=== PATIENT | male | born 1950 | race Native Hawaiian/Other Pacific Islander ===

== ENCOUNTER 2016-08-12 10:33 | Inpatient (IN) | payer OTHER ==
[~2016-08-12] VITALS: Ht 180.3 cm; Wt 110.9 kg
[~2016-08-12 10:33] MED LIST: ALBUTEROL0.083 % IN; CARV6.25 PO; CLARITIN10 MG OR; CLARITIN10 MG PO; EQ ASPIRIN325 M1 OR; EQ ASPIRIN325 M1 PO; GEMF600T17 PO; HYDR-2748 PO; JANUMET1 TA1 OR; JANUMET1 TA1 PO; LORTAB1 TA1 PO; METF100038 PO; PLAVIX75 MG PO; RANI150T78 PO; SIMV40TA57 PO; TRICOR145 M1 PO; TRICOR145 MG PO; TRILIPIX135 MG OR; Z-PAK PO
[2016-08-12 10:56] VITALS: BP 153/89; TEMP 97.9
[2016-08-12 11:26] LABS: PLATELET COUNT 153 K/uL (142-355)
[2016-08-12 11:50] LABS: POTASSIUM 3.8 mmol/L (3.6-5.2)
[2016-08-13] VITALS (18 sets, daily range): BP systolic 113–170; BP diastolic 70–111; TEMP 97.7–99; Ht 180.3 cm; Wt 110.9 kg
[2016-08-13] MEDS ORDERED: GLIP10TA55 PO ×2 (18:11)
[2016-08-13] MEDS ORDERED: FURO20TA67 PO ×2 (18:12)
[2016-08-13] MEDS ORDERED: CHLORTHALID25 MG PO ×2 (18:12)
[2016-08-13] MEDS ORDERED: TRADJENTA5 M1 PO ×2 (18:13)
[2016-08-13] MEDS ORDERED: XARELTO20 MG PO ×2 (18:14)
[2016-08-13] MEDS ORDERED: OMEPRAZOLE20 M2 PO ×2 (18:16)
[2016-08-13] MEDS ORDERED: AMLO2.5T PO ×2 (18:17)
[2016-08-13] MEDS ORDERED: FUROSEMIDE40 MG PO ×2 (18:20)
[2016-08-13] MEDS ORDERED: KLOR-CON 1010 MEQ PO ×2 (18:21)
[2016-08-13] MEDS ORDERED: GABA300C2 PO ×2 (18:22)
[2016-08-13] MEDS ORDERED: DIGOX125 MCG PO ×2 (18:22)
[2016-08-13] MEDS ORDERED: AMOX875T8 PO ×2 (18:24)
[2016-08-13] MEDS ORDERED: CHERATUSSIN PO ×2 (18:25)
[2016-08-14] VITALS (24 sets, daily range): BP systolic 113–187; BP diastolic 51–99; TEMP 97–98.7
[2016-08-14 05:31] LABS: PLATELET COUNT 108 K/uL (142-355)
[2016-08-14 05:58] LABS: POTASSIUM 4.1 mmol/L (3.6-5.2); SODIUM 129 mmol/L (136-145)
[2016-08-14] MEDS ORDERED: LEVEMIR FLEXPEN SC ×2 (15:45)
[2016-08-15] VITALS (14 sets, daily range): BP systolic 127–171; BP diastolic 63–96; TEMP 97.6–98
[2016-08-15 06:31] LABS: PLATELET COUNT 134 K/uL (142-355)
[2016-08-15 07:10] LABS: POTASSIUM 3.8 mmol/L (3.6-5.2)
[2016-08-16 00:24] VITALS: BP 168/66; TEMP 98.2
[2016-08-16 04:41] LABS: PLATELET COUNT 135 K/uL (142-355)
[2016-08-16 04:45] LABS: POTASSIUM 4.4 mmol/L (3.6-5.2)
[2016-08-16 05:48] VITALS: BP 163/81; TEMP 98.6
[2016-08-16 08:24] VITALS: BP 155/75; TEMP 97.8
[2016-08-16 13:53] VITALS: BP 143/71; TEMP 98
[2016-08-16 16:00] VITALS: BP 141/60; TEMP 97.4
[2016-08-16 20:00] VITALS: BP 138/74; TEMP 97.8
[2016-08-17 04:00] VITALS: BP 195/83; TEMP 98.3
[2016-08-17 05:05] LABS: PLATELET COUNT 109 K/uL (142-355)
[2016-08-17 08:00] VITALS: BP 163/71; TEMP 98.2
[2016-08-17 08:36] LABS: POTASSIUM 4.1 mmol/L (3.6-5.2)
[2016-08-17 12:00] VITALS: BP 162/68; TEMP 98.6
[2016-08-17 16:00] VITALS: BP 158/62; TEMP 98.6
[2016-08-17 20:00] VITALS: BP 157/84; TEMP 97.5
[2016-08-18] VITALS: BP 154/74; TEMP 97.5
[2016-08-18 04:00] VITALS: BP 176/88; TEMP 97.3
[2016-08-18 06:07] LABS: PLATELET COUNT 111 K/uL (142-355)
[2016-08-18 07:59] VITALS: BP 145/95; TEMP 98.1
[2016-08-18 12:25] VITALS: BP 143/79; TEMP 98.2
== END 2016-08-18 14:30 | disposition home or self-care (01) | DRG 191 ==
LOC: ED 10:33 → MED/SURG 22:09 → ICU 08-13 17:46 → MED/SURG 08-13 17:46 → ICU 08-15 17:00 → MED/SURG 08-15 17:00
PROVIDERS: Emergency Medicine
DX: J44.0 Chronic obstructive pulmonary disease with (acute) lower respiratory infection (principal); E87.3 Alkalosis; E87.1 Hypo-osmolality and hyponatremia; J20.9 Acute bronchitis, unspecified; R06.09 Other forms of dyspnea; I48.91 Unspecified atrial fibrillation; E11.9 Type 2 diabetes mellitus without complications; R53.1 Weakness; N18.3 Chronic kidney disease, stage 3 (moderate); Z72.0 Tobacco use; I48.2 Chronic atrial fibrillation; J32.8 Other chronic sinusitis; Z86.73 Personal history of transient ischemic attack (TIA), and cerebral infarction without residual deficits; I25.10 Atherosclerotic heart disease of native coronary artery without angina pectoris; I25.2 Old myocardial infarction
CPT/HCPCS: 36415; 36600; 80048; 80053; 80061; 80162; 81000; 82550; 82805; 82947; 82948; 82962; 83036; 83735; 83880; 84484; 85027; 87070; 87077; 87185; 87186; 87490; 87590; 93005; 94640; 94664; 94760; 96360; 96365; 96366; 96367; 96372; 99220; 99283; 99284; G0378; J1160; J1450; J1644; J1650; J1940; J1956; J2060; J2920; J3490; Q9963

== ENCOUNTER 2016-08-21 12:02 | Emergency (ER) | payer OTHER ==
[~2016-08-21] VITALS: Ht 180.3 cm; Wt 108.9 kg
[~2016-08-21 12:02] MED LIST changes: +AMLO2.5T PO; +AMOX875T8 PO; +CHERATUSSIN PO; +CHLORTHALID25 MG PO; +DIGOX125 MCG PO; +FURO20TA67 PO; +FUROSEMIDE40 MG PO; +GABA300C2 PO; +GLIP10TA55 PO; +KLOR-CON 1010 MEQ PO; +LEVEMIR FLEXPEN SC; +OMEPRAZOLE20 M2 PO; +TRADJENTA5 M1 PO; +XARELTO20 MG PO
[2016-08-21 12:24] VITALS: BP 149/85; TEMP 97.5
[2016-08-21 14:55] LABS: PLATELET COUNT 152 K/uL (142-355)
[2016-08-21 14:58] LABS: POTASSIUM 4.8 mmol/L (3.6-5.2); SODIUM 129 mmol/L (136-145)
== END 2016-08-21 16:45 | disposition home or self-care (01) ==
LOC: ED 12:02
PROVIDERS: Emergency Medicine
DX: J44.1 Chronic obstructive pulmonary disease with (acute) exacerbation (principal); J42 Unspecified chronic bronchitis; E87.1 Hypo-osmolality and hyponatremia; R06.02 Shortness of breath; I48.91 Unspecified atrial fibrillation
CPT/HCPCS: 36415; 80053; 80162; 82550; 83880; 84484; 85027; 93005; 96372; 99283; J1815; J2930

== ENCOUNTER 2016-10-02 11:39 | Outpatient (CLI) | payer OTHER ==
[2016-10-02 12:06] LABS: PLATELET COUNT 207 K/uL (142-355)
== END 2016-10-02 12:39 | disposition home or self-care (01) ==
LOC: LAB 11:39
PROVIDERS: Family Medicine
DX: E11.9 Type 2 diabetes mellitus without complications (principal); N18.3 Chronic kidney disease, stage 3 (moderate); M79.671 Pain in right foot
CPT/HCPCS: 80053; 83036; 84550; 85027

== ENCOUNTER 2016-10-03 10:00 | Outpatient (CLI) | payer OTHER | END 2016-10-03 11:00 | disposition home or self-care (01) | LOC: RAD 10:00 | DX: M79.671 Pain in right foot (principal) ==

== ENCOUNTER 2017-03-20 13:09 | Outpatient (CLI) | payer OTHER ==
[2017-03-20 13:54] LABS: PLATELET COUNT 121 K/uL (142-355)
[2017-03-20 14:34] LABS: POTASSIUM 4.4 mmol/L (3.6-5.2)
== END 2017-03-20 14:10 | disposition home or self-care (01) ==
LOC: LAB 13:09
PROVIDERS: Family Medicine
DX: Z00.00 Encounter for general adult medical examination without abnormal findings (principal); E11.9 Type 2 diabetes mellitus without complications; I12.9 Hypertensive chronic kidney disease with stage 1 through stage 4 chronic kidney disease, or unspecified chronic kidney disease; N18.3 Chronic kidney disease, stage 3 (moderate); I48.91 Unspecified atrial fibrillation; Z12.5 Encounter for screening for malignant neoplasm of prostate
CPT/HCPCS: 80053; 80061; 81000; 82306; 83036; 83735; 84153; 84439; 84443; 84550; 85027

== ENCOUNTER 2017-03-23 23:41 | Emergency (ER) | payer OTHER ==
[~2017-03-23] VITALS: Ht 180.3 cm; Wt 104.8 kg
[2017-03-24] MEDS ORDERED: XARELTO15 MG PO (00:20)
[2017-03-24] MEDS ORDERED: ALLO100T22 PO (00:23)
[2017-03-24] MEDS ORDERED: TRADJENTA5 M1 PO (00:24)
[2017-03-24 00:51] VITALS: BP 156/61; TEMP 98.8
== END 2017-03-24 00:53 | disposition home or self-care (01) ==
LOC: ED 23:41
DX: K64.4 Residual hemorrhoidal skin tags (principal); S31.831A Laceration without foreign body of anus, initial encounter; K62.89 Other specified diseases of anus and rectum
CPT/HCPCS: 99282

== ENCOUNTER 2017-07-16 09:41 | Outpatient (CLI) | payer OTHER ==
[~2017-07-16 09:41] MED LIST changes: +ALLO100T22 PO; +XARELTO15 MG PO
[2017-07-16 10:41] LABS: POTASSIUM 4.3 mmol/L (3.6-5.2)
== END 2017-07-16 21:50 | disposition home or self-care (01) ==
LOC: LABW 09:41
PROVIDERS: Family Medicine
DX: E11.3 Type 2 diabetes mellitus with ophthalmic complications (principal); R60.0 Localized edema; Z79.899 Other long term (current) drug therapy
CPT/HCPCS: 36415; 80053; 80162; 83036; 84154; 84436; 84443; 84550

== ENCOUNTER → 2017-07-23 15:53 | Outpatient (CLI) | payer OTHER | END | disposition home or self-care (01) | LOC: AMB 15:53 | DX: Z04.1 Encounter for examination and observation following transport accident (principal) ==

== ENCOUNTER 2017-08-21 08:32 | Outpatient (CLI) | payer OTHER | END 2017-08-21 19:46 | disposition home or self-care (01) | LOC: NM 08:32 | DX: I25.10 Atherosclerotic heart disease of native coronary artery without angina pectoris (principal) | CPT/HCPCS: A9500; J2785 ==

== ENCOUNTER 2017-09-21 09:39 | Emergency (ER) | payer OTHER ==
[~2017-09-21] VITALS: Ht 180.3 cm; Wt 104.3 kg
[2017-09-21 11:05] LABS: PLATELET COUNT 154 K/uL (142-355)
[2017-09-21 11:13] LABS: POTASSIUM 4.5 mmol/L (3.6-5.2)
[2017-09-21 14:40] VITALS: BP 138/72; TEMP 98
== END 2017-09-21 14:40 | disposition home or self-care (01) ==
LOC: ED 09:39
DX: K40.90 Unilateral inguinal hernia, without obstruction or gangrene, not specified as recurrent (principal); K80.10 Calculus of gallbladder with chronic cholecystitis without obstruction; R10.84 Generalized abdominal pain; I48.91 Unspecified atrial fibrillation
CPT/HCPCS: 36415; 74022; 80053; 80162; 81000; 82150; 83690; 84484; 85027; 93005; 99284

== ENCOUNTER 2017-09-24 10:20 | Outpatient (CLI) | payer OTHER | END 2017-09-24 21:47 | disposition home or self-care (01) | LOC: US 10:20 | DX: R10.11 Right upper quadrant pain (principal) ==

== ENCOUNTER 2017-09-28 20:29 | Inpatient (IN) | payer OTHER ==
[~2017-09-28] VITALS: Ht 180.3 cm; Wt 98.0 kg
[2017-09-28 20:50] VITALS: BP 145/62; TEMP 98.2
[2017-09-28 22:05] LABS: PLATELET COUNT 204 K/uL (142-355); POTASSIUM 4.1 mmol/L (3.6-5.2); SODIUM 129 mmol/L (136-145)
[2017-09-29] VITALS (17 sets, daily range): BP systolic 114–163; BP diastolic 48–92; TEMP 97.6–98.6; Ht 180.3 cm; Wt 98.0 kg
--- NOTE | 2017-09-29 00:40 | NUR ---
PATIENT RECEIVED VIA WC FROM ER. ALERT AND ORIENTED X 3. PATIENT GIVEN EDUCATION REGARDING CALL LIGHT AND BED CONTROLS. INSTRUCTED TO KEEP BED IN LOW POSITION. 20G SALINE LOCK TO RFA INTACT AND PATENT. REFER TO ASSESSMENT 1&2 FOR FURTHER DETAILS.
[2017-09-29 04:33] LABS: PLATELET COUNT 191 K/uL (142-355)
[2017-09-29 04:56] LABS: POTASSIUM 4.3 mmol/L (3.6-5.2)
--- NOTE | 2017-09-29 08:15 | NUR ---
PT SITTING UP ON SIDE OF THE BED. BREATH SOUNDS CLEAR UPON ASCULATION. HEART MURMUR NOTED. RESP AT BEDSIDE. WILL CONTNUE TO MONITOR. NAD NOTED.
--- NOTE | 2017-09-29 10:57 | NUR ---
PT SITTING UP ON THE SIDE OF THE BED. NAD NOTED. WILL CONTINUE TO MONITOR.
--- NOTE | 2017-09-29 11:27 | NUR ---
PT MOVED TO PCU VIA W/C. REPORT GIVEN TO ITZEL OSORIO RN. PT SITTING UP IIN BED. HEART MONITOR ON. NAD NOTED.
--- NOTE | 2017-09-29 13:15 | NUR ---
PATIENT REQUEST ICE AND WATER. SMALL BOTTLE GIVEN AND PLACED AT BEDSIDE.
--- NOTE | 2017-09-29 15:00 | NUR ---
PATIENT AMBULATED WELL TO RESTROOM. REPORTS HAVING A BOWEL MOVEMENT AT THIS TIME.
--- NOTE | 2017-09-29 15:30 | NUR ---
100% OF SUPPER TRAY EATEN.VOICES NO COMPLAINTS OR CONCERNS AT THIS TIME.
--- NOTE | 2017-09-29 18:01 | NUR ---
GLUCOSE 597. RESULTS CALLED TO DR. MAYO. NEW ORDERS RECIEVED FOR 10 UNITS NOVOLOG NOW.
--- NOTE | 2017-09-29 21:50 | NUR ---
GLUCOSE 789. DR. SAEED NOTIFIED. ORDERS RECEIVED TO FOLLOW SLIDING SCALE PREVIOUSLY ORDERED AND RECHECK IN TWO HOURS AND FOLLOW SLIDING SCALE AGAIN.
[2017-09-30] VITALS (25 sets, daily range): BP systolic 109–159; BP diastolic 49–90; TEMP 97.6–98.2
--- NOTE | 2017-09-30 01:13 | NUR ---
GLUCOSE 619 AT THIS TIME. SLIDING SCALE INSULING GIVEN AT THIS TIME. WILL RECHECK GLUCOSE IN 2 HOURS ORDERED
--- NOTE | 2017-09-30 02:21 | NUR ---
PT RESTING QUIETLY WITH EYES CLOSED. NAD NOTED. WILL CONTINUE TO MONITOR
--- NOTE | 2017-09-30 09:00 | NUR ---
DR MAYO AT PATIENTS BED SIDE
[2017-10-01] VITALS (20 sets, daily range): BP systolic 112–170; BP diastolic 49–99; TEMP 97.5–98.9
--- NOTE | 2017-10-01 06:51 | NUR ---
1950 CALLED TO PT BEDSIDE. PT SITTING UP IN BED. PT REQUESTED ICE WATER. PT WAS NOT IN DISTRESS. WILL CONTINUE TO MONITOR.
--- NOTE | 2017-10-01 06:56 | NUR ---
2230 PT IN BED RESTING. PT WAS NOT IN ANY DISTRESS. WHEN ASKED, PT DID NOT NEED ANYTHING AT THIS TIME. WILL CONTINUE TO MONITOR.
--- NOTE | 2017-10-01 06:57 | NUR ---
0000 PT IN BED RESTING WITH EYES CLOSED. NO S/S OF DISTRESS NOTED. WILL CONTINUE TO MONITOR.
--- NOTE | 2017-10-01 06:59 | NUR ---
0300 PT IN BED. PT REQUESTS A SNACK. I BROUGHT HIM A FEW SUGAR FREE COOKIES. NO S/S OF DISTRESS NOTED. WILL CONTINUE TO MONITOR.
[2017-10-01 08:59] LABS: PLATELET COUNT 210 K/uL (142-355)
--- NOTE | 2017-10-01 09:01 | NUR ---
CRITICAL GLUCOSE CALLED 479
--- NOTE | 2017-10-01 09:47 | NUR ---
CALLED DR. JAMIL TO REPORT CRITICAL GLUCOSE OF 479 INSTRUCTED BY [employer]SI PROTOCOL. 10 UNITS NOVOLOG ORDERED TO BE GIVEN. RECHECK OBTAINED PRIOR TO ADMINISTRATION OF INSULIN.
--- NOTE | 2017-10-01 10:00 | NUR ---
PATIENT AMBULATED WELL WITH ASSISTANCE TO RESTROOM.
--- NOTE | 2017-10-01 11:54 | NUR ---
BLOOD SUGAR 475. NOTIFIED MD. NEW ORDERS RECIEVED FOR 10 UNITS AND TO DISCONTINUE SOLUMEDROL.
--- NOTE | 2017-10-01 13:20 | NUR ---
EZ AT BEDSIDE TO EXAMINE PATIENT. REQUEST A BLOOD SUGAR NOW. IT HAS BEEN LESS THAN 1 HR SINCE COVERAGE WAS GIVEN AND BLOOD SUGAR IS 491. WILL RECHECK AGAIN 1 HOUR AND COVER AT THAT TIME. PATIENT BEING EDUCATED ON DIET AND ON HOW TO KEEP A BLOOD SUGAR DIARY BY .
--- NOTE | 2017-10-01 13:42 | NUR ---
PATIENT COMPLAINED OF LT TESTICAL AND LT GROIN PAIN. EXAM PERFORMED AND CT REVIEWED. BILATERAL INGUINAL HERNIAS DISCUSSED. PATIENT HAS BEEN SCHEDULED BY DR. DUMONT OFFICE FOR OUTPATIENT VISIT WITH DR. RODRÍGUEZ.
--- NOTE | 2017-10-01 14:15 | NUR ---
PATIENT TAKEN TO ROOM 1129 FOR SHOWER BY MERY LARSEN.
--- NOTE | 2017-10-01 14:31 | NUR ---
RETURNED FROM SHOWER.
--- NOTE | 2017-10-01 16:00 | NUR ---
PATIENT REQUEST A SNACK OF ESTRELLITA CRACKERS AND MILK. SNACK TAKEN TO BEDSIDE.
--- NOTE | 2017-10-01 17:00 | NUR ---
SITTING UPRIGHT IN BED TALKING ON CELL PHONE. DENIES AND PAIN OR NEEDS AT THIS TIME.
--- NOTE | 2017-10-01 18:30 | NUR ---
SITTING UPRIGHT IN BED WATCHING TV. 700 EMPTIED FROM URINAL.
[2017-10-02] VITALS (12 sets, daily range): BP systolic 117–157; BP diastolic 64–95; TEMP 97.8–98.2
[2017-10-02 11:18] LABS: PARTIAL THROMBOPLASTIN TIME 32.9 SECONDS (24.5-33.6)
--- NOTE | 2017-10-02 17:00 | NUR ---
REPORT GIVEN TO RONDA GEIGER RN ON MED SURG FLOOR.
--- NOTE | 2017-10-02 17:15 | NUR ---
PT TRANSFERRED TO MED SURG ROOM 1115 VIA WC. PT TOLERATED TRANSITION TO MED SURG FLOOR.
--- NOTE | 2017-10-02 23:51 | NUR ---
10/02/17 7570 RESPIRATORY PRESENT IN ROOM FOR BREATHING TREATMENT.CC
[2017-10-03] VITALS: BP 112/64; TEMP 98.2
[2017-10-03 04:00] VITALS: BP 126/65; TEMP 97.9
[2017-10-03 08:20] VITALS: BP 125/51; TEMP 98.6
--- NOTE | 2017-10-03 09:29 | NUR ---
IV D/C'D. TELE D/C'D. PT INSTRUCTED TO GO BY DR. DUMONT OFFICE TO GET INFO TO TAKE TO DR. RODRÍGUEZ' APT THIS SUNDAY. PT TO MAKE FU WITH DR. JAMIL AFTER APT WITH DR. RODRÍGUEZ. PRESCRIPTION GIVEN TO PT. PT HAS NO FUTHER QUESTIONS. PT AMBULATED OUT TO VEHICLE WITH NO PROBLEMS NOTED.
== END 2017-10-03 08:55 | disposition home or self-care (01) | DRG 191 ==
LOC: ED 20:29 → MED/SURG 09-29 00:18 → ICU 09-29 00:18 → MED/SURG 09-29 00:18 → ICU 09-29 11:15 → MED/SURG 10-02 17:19
PROVIDERS: Emergency Medicine; Internal Medicine; Specialist; ADMIT Family Medicine
DX: J44.0 Chronic obstructive pulmonary disease with (acute) lower respiratory infection (principal); J98.11 Atelectasis; J20.9 Acute bronchitis, unspecified; J44.1 Chronic obstructive pulmonary disease with (acute) exacerbation; I48.91 Unspecified atrial fibrillation; E11.22 Type 2 diabetes mellitus with diabetic chronic kidney disease; I12.9 Hypertensive chronic kidney disease with stage 1 through stage 4 chronic kidney disease, or unspecified chronic kidney disease; N18.3 Chronic kidney disease, stage 3 (moderate); D53.9 Nutritional anemia, unspecified; K80.80 Other cholelithiasis without obstruction; R10.9 Unspecified abdominal pain; E78.4 Other hyperlipidemia; I25.10 Atherosclerotic heart disease of native coronary artery without angina pectoris; I25.2 Old myocardial infarction; Z86.73 Personal history of transient ischemic attack (TIA), and cerebral infarction without residual deficits
CPT/HCPCS: 36415; 80048; 80053; 82947; 82948; 82962; 83735; 83880; 84100; 84484; 85027; 85610; 85730; 87070; 87205; 93005; 94640; 94664; 94760; 96372; 96374; 96375; 99284; J0696; J1650; J1815; J1940; J2920; J2930; J3490

== ENCOUNTER 2018-06-20 01:22 | Emergency (ER) | payer OTHER ==
[~2018-06-20] VITALS: Ht 180.3 cm; Wt 97.5 kg
[2018-06-20 01:33] VITALS: BP 152/72; TEMP 97.9
[2018-06-20 01:57] LABS: PLATELET COUNT 114 K/uL (142-355)
[2018-06-20 02:11] LABS: POTASSIUM 4.1 mmol/L (3.6-5.2)
== END 2018-06-20 03:38 | disposition home or self-care (01) ==
LOC: ED 01:22
PROVIDERS: Emergency Medicine
DX: E11.65 Type 2 diabetes mellitus with hyperglycemia (principal)
CPT/HCPCS: 36415; 80053; 81002; 82962; 85027; 96365; 96372; 96374; 99284; J1815

== ENCOUNTER 2018-07-06 11:41 | Outpatient (CLI) | payer OTHER | END 2018-07-06 23:01 | disposition home or self-care (01) | LOC: LABW 11:41 | DX: Z11.59 Encounter for screening for other viral diseases (principal) | CPT/HCPCS: 36415; 80074 ==

== ENCOUNTER 2019-02-27 10:06 | Outpatient (CLI) | payer OTHER | END 2019-02-27 22:35 | disposition home or self-care (01) | LOC: LABW 10:06 | DX: Z79.899 Other long term (current) drug therapy (principal); I50.9 Heart failure, unspecified | CPT/HCPCS: 36415; 80162 ==

== ENCOUNTER 2019-04-24 11:26 | Outpatient (CLI) | payer OTHER | END 2019-04-24 23:31 | disposition home or self-care (01) | LOC: RESP 11:26 | DX: Z00.00 Encounter for general adult medical examination without abnormal findings (principal); R00.1 Bradycardia, unspecified | CPT/HCPCS: 93005 ==

== ENCOUNTER 2019-06-14 14:36 | Outpatient (CLI) | payer OTHER | END 2019-06-14 20:09 | disposition home or self-care (01) | LOC: LABW 14:36 | DX: R19.7 Diarrhea, unspecified (principal); G89.4 Chronic pain syndrome; E11.65 Type 2 diabetes mellitus with hyperglycemia | CPT/HCPCS: 82272; 87015; 87045; 87324; 87328; 87329; 87449; 87899 ==

== ENCOUNTER 2019-11-08 14:37 | Emergency (ER) | payer OTHER ==
[~2019-11-08] VITALS: Ht 180.3 cm; Wt 97.5 kg
[2019-11-08 15:32] LABS: PLATELET COUNT 103 K/uL (142-355)
[2019-11-08 15:42] LABS: POTASSIUM 4.3 mmol/L (3.6-5.2)
[2019-11-08 21:17] VITALS: BP 150/77; TEMP 96.8
== END 2019-11-08 21:19 | disposition short-term general hospital (02) ==
LOC: ED 14:37
PROVIDERS: Family Medicine
DX: E87.1 Hypo-osmolality and hyponatremia (principal); J44.1 Chronic obstructive pulmonary disease with (acute) exacerbation; I48.91 Unspecified atrial fibrillation
CPT/HCPCS: 36415; 80053; 81000; 82150; 82550; 82553; 83605; 83690; 83880; 84484; 85027; 85379; 87040; 93005; 94664; 96360; 96365; 96375; 99285; J0696; J2060; J2270; J2405; J2930; Q9963

== ENCOUNTER 2020-06-22 11:28 | Outpatient (CLI) | payer OTHER | END 2020-06-22 19:15 | disposition home or self-care (01) | LOC: LAB 11:28 | PROVIDERS: ATTEND Family Medicine | DX: Z20.828 Contact with and (suspected) exposure to other viral communicable diseases (principal) | CPT/HCPCS: 87635; G2023; U0003 ==

== ENCOUNTER 2020-11-26 13:01 | Outpatient (CLI) | payer OTHER | END 2020-11-26 23:02 | disposition home or self-care (01) | LOC: RESP 13:01 | PROVIDERS: ATTEND Specialist | DX: E86.0 Dehydration (principal); I25.10 Atherosclerotic heart disease of native coronary artery without angina pectoris; I25.5 Ischemic cardiomyopathy; R00.1 Bradycardia, unspecified; I48.0 Paroxysmal atrial fibrillation; I35.2 Nonrheumatic aortic (valve) stenosis with insufficiency; E78.2 Mixed hyperlipidemia; I36.1 Nonrheumatic tricuspid (valve) insufficiency; I34.0 Nonrheumatic mitral (valve) insufficiency; I65.23 Occlusion and stenosis of bilateral carotid arteries; I10 Essential (primary) hypertension; R01.2 Other cardiac sounds; E66.3 Overweight ==

== ENCOUNTER 2021-01-20 22:28 | Emergency (ER) | payer OTHER ==
[~2021-01-20] VITALS: Ht 180.3 cm; Wt 95.3 kg
[2021-01-21 01:05] LABS: PLATELET COUNT 128 K/uL (142-355)
[2021-01-21 01:09] LABS: POTASSIUM 4.3 mmol/L (3.6-5.2)
[2021-01-21 02:34] VITALS: BP 152/72; TEMP 98.2
== END 2021-01-21 02:34 | disposition home or self-care (01) ==
LOC: ED 22:28
PROVIDERS: Hospitalist
DX: K59.09 Other constipation (principal)
CPT/HCPCS: 80053; 83690; 85027; 99283

== ENCOUNTER 2021-05-14 18:21 | Inpatient (IN) | payer OTHER ==
[~2021-05-14] VITALS: Ht 180.3 cm; Wt 97.7 kg
[2021-05-14 18:21] VITALS: BP 149/75; TEMP 98.8
[2021-05-14 19:00] VITALS: BP 128/70
[2021-05-14 19:05] LABS: PLATELET COUNT 156 K/uL (142-355)
[2021-05-14 19:11] LABS: POTASSIUM 3.8 mmol/L (3.6-5.2)
[2021-05-14 19:28] LABS: PARTIAL THROMBOPLASTIN TIME 30.9 SECONDS (24.5-33.6)
[2021-05-14 19:30] VITALS: BP 162/86
[2021-05-15] VITALS (7 sets, daily range): BP systolic 131–155; BP diastolic 62–86; TEMP 97.6–98.8; Ht 180.3 cm; Wt 97.7 kg
[2021-05-15 04:02] LABS: PLATELET COUNT 139 K/uL (142-355)
[2021-05-15 04:20] LABS: POTASSIUM 3.7 mmol/L (3.6-5.2)
[2021-05-16] VITALS: BP 122/69; TEMP 98.3
[2021-05-16 04:00] VITALS: BP 118/79; TEMP 97.5
[2021-05-16 05:45] LABS: PLATELET COUNT 162 K/uL (142-355)
[2021-05-16 06:10] LABS: POTASSIUM 3.4 mmol/L (3.6-5.2)
[2021-05-16 08:00] VITALS: BP 138/73; TEMP 97.9
[2021-05-16 12:00] VITALS: BP 147/84; TEMP 97.7
[2021-05-16 16:00] VITALS: TEMP 98.5
[2021-05-16 20:00] VITALS: BP 118/76; TEMP 97.9
[2021-05-17 00:09] VITALS: BP 136/75; TEMP 97.7
[2021-05-17 04:00] VITALS: BP 149/81; TEMP 97.8
[2021-05-17 05:54] LABS: PLATELET COUNT 169 K/uL (142-355)
[2021-05-17 06:18] LABS: POTASSIUM 3.4 mmol/L (3.6-5.2); SODIUM 140 mmol/L (136-145)
[2021-05-17 08:00] VITALS: BP 156/75; TEMP 97.9
[2021-05-17 09:02] LABS: PLATELET COUNT 187 K/uL (142-355)
[2021-05-17 09:22] LABS: POTASSIUM 3.2 mmol/L (3.6-5.2)
[2021-05-17] MEDS ORDERED: ALLO300T23 PO (11:34)
[2021-05-17] MEDS ORDERED: CARV3.12 PO (11:42)
[2021-05-17] MEDS ORDERED: JANUVIA100 MG PO (11:46)
[2021-05-17] MEDS ORDERED: NEURONTIN 100M100 MG PO (11:49)
[2021-05-17] MEDS ORDERED: HUMALOG KW100 UNIT/M SC (11:51)
[2021-05-17] MEDS ORDERED: BASAGLAR K100 UNIT/M SC (11:51)
[2021-05-17] MEDS ORDERED: DONEPEZIL HYDRO10 M1 PO (11:53)
[2021-05-17 12:00] VITALS: BP 150/77; TEMP 98.1
== END 2021-05-17 14:05 | disposition home or self-care (01) | DRG 190 ==
LOC: ED 18:21 → MED/SURG 19:45
PROVIDERS: ADMIT Hospitalist; ATTEND Family Medicine
DX: J44.0 Chronic obstructive pulmonary disease with (acute) lower respiratory infection (principal); J18.8 Other pneumonia, unspecified organism; I48.20 Chronic atrial fibrillation, unspecified; I13.0 Hypertensive heart and chronic kidney disease with heart failure and stage 1 through stage 4 chronic kidney disease, or unspecified chronic kidney disease; R06.09 Other forms of dyspnea; E11.22 Type 2 diabetes mellitus with diabetic chronic kidney disease; E11.65 Type 2 diabetes mellitus with hyperglycemia; N18.30 Chronic kidney disease, stage 3 unspecified; I50.9 Heart failure, unspecified
CPT/HCPCS: 36415; 36600; 80053; 80162; 82550; 82805; 83605; 83735; 83880; 84100; 84484; 85027; 85610; 85730; 87040; 87635; 90658; 93005; 94640; 94664; 94667; 94668; 94760; 96365; 99284; J0456; J0696; J1160; J1650; J1815; J1940; J3370; U0003

== ENCOUNTER 2021-06-08 10:24 | Outpatient (CLI) | payer OTHER ==
[~2021-06-08 10:24] MED LIST changes: +ALLO300T23 PO; +BASAGLAR K100 UNIT/M SC; +CARV3.12 PO; +DONEPEZIL HYDRO10 M1 PO; +HUMALOG KW100 UNIT/M SC; +JANUVIA100 MG PO; +NEURONTIN 100M100 MG PO
== END 2021-06-08 20:22 | disposition home or self-care (01) ==
LOC: LABW 10:24
PROVIDERS: ATTEND Podiatrist
DX: B35.1 Tinea unguium (principal)
CPT/HCPCS: 36415; 84450; 84460

== ENCOUNTER 2021-06-29 09:00 | Outpatient (CLI) | payer OTHER ==
[2021-06-29 09:17] LABS: PLATELET COUNT 162 K/uL (142-355)
[2021-06-29 09:29] LABS: POTASSIUM 4.2 mmol/L (3.6-5.2)
== END 2021-06-29 21:18 | disposition home or self-care (01) ==
LOC: LABW 09:00
PROVIDERS: ATTEND Specialist
DX: Z01.810 Encounter for preprocedural cardiovascular examination (principal); I42.8 Other cardiomyopathies; I25.10 Atherosclerotic heart disease of native coronary artery without angina pectoris; I35.0 Nonrheumatic aortic (valve) stenosis
CPT/HCPCS: 36415; 80048; 85027

== ENCOUNTER 2022-06-14 11:55 | Observation (INO) | payer OTHER ==
[~2022-06-14] VITALS: Ht 180.3 cm; Wt 98.7 kg
[2022-06-14 11:58] VITALS: BP 152/69; TEMP 98
[2022-06-14 12:23] LABS: PLATELET COUNT 188 K/uL (142-355)
[2022-06-14 12:31] LABS: POTASSIUM 3.9 mmol/L (3.6-5.2)
[2022-06-14 12:38] LABS: PARTIAL THROMBOPLASTIN TIME 31.8 SECONDS (24.5-33.6)
[2022-06-14 15:30] VITALS: BP 133/56
[2022-06-14 17:54] VITALS: BP 147/69; TEMP 97.6; Ht 180.3 cm; Wt 98.7 kg
[2022-06-14 19:55] VITALS: BP 155/83; TEMP 98.3
[2022-06-15] VITALS: BP 138/74; TEMP 98.5
[2022-06-15 03:37] VITALS: BP 128/52; TEMP 98.8
[2022-06-15 04:20] LABS: PLATELET COUNT 125 K/uL (142-355)
[2022-06-15 04:56] LABS: POTASSIUM 3.8 mmol/L (3.6-5.2)
[2022-06-15 08:00] VITALS: BP 134/64; TEMP 98.6
[2022-06-15 12:00] VITALS: BP 140/90; TEMP 98.4
== END 2022-06-15 14:54 | disposition home or self-care (01) ==
LOC: ED 11:58 → MED/SURG 14:26
PROVIDERS: Family Medicine; Internal Medicine; ADMIT Family Medicine; ATTEND Family Medicine
DX: I13.0 Hypertensive heart and chronic kidney disease with heart failure and stage 1 through stage 4 chronic kidney disease, or unspecified chronic kidney disease (principal); I25.2 Old myocardial infarction; I48.91 Unspecified atrial fibrillation; E78.49 Other hyperlipidemia; Z86.73 Personal history of transient ischemic attack (TIA), and cerebral infarction without residual deficits; K21.9 Gastro-esophageal reflux disease without esophagitis; R06.09 Other forms of dyspnea; D64.89 Other specified anemias; I25.112 Atherosclerotic heart disease of native coronary artery with refractory angina pectoris; J44.1 Chronic obstructive pulmonary disease with (acute) exacerbation; E11.22 Type 2 diabetes mellitus with diabetic chronic kidney disease; E11.65 Type 2 diabetes mellitus with hyperglycemia; N18.32 Chronic kidney disease, stage 3b; I50.9 Heart failure, unspecified; E11.42 Type 2 diabetes mellitus with diabetic polyneuropathy
CPT/HCPCS: 36415; 36600; 80053; 80061; 82550; 82805; 82948; 83880; 84443; 84484; 85027; 85379; 85610; 85730; 87635; 93005; 94664; 96372; 96374; 96375; 99220; 99284; G0378; J1644; J1815; J1940; J2920; J3490; U0003

== ENCOUNTER 2022-06-21 01:42 | Observation (INO) | payer OTHER ==
[2022-06-21] VITALS (14 sets, daily range): BP systolic 107–160; BP diastolic 50–75; TEMP 99–99.8; Ht 180.3 cm; Wt 106.1 kg
[~2022-06-21] VITALS: Ht 180.3 cm; Wt 106.1 kg
[2022-06-21 03:05] LABS: POTASSIUM 3.7 mmol/L (3.6-5.2)
[2022-06-21 03:11] LABS: PARTIAL THROMBOPLASTIN TIME 29.2 SECONDS (24.5-33.6)
[2022-06-21 03:12] LABS: PLATELET COUNT 121 K/uL (142-355)
[2022-06-21 13:57] LABS: PLATELET COUNT 101 K/uL (142-355)
[2022-06-21 14:30] LABS: POTASSIUM 3.6 mmol/L (3.6-5.2)
[2022-06-21 21:10] LABS: POTASSIUM 3.6 mmol/L (3.6-5.2)
[2022-06-22 00:14] VITALS: BP 94/61; TEMP 98.4
[2022-06-22 03:02] LABS: POTASSIUM 3.4 mmol/L (3.6-5.2)
[2022-06-22 03:45] LABS: PLATELET COUNT 92 K/uL (142-355)
[2022-06-22 04:40] VITALS: BP 113/56; TEMP 98.4
[2022-06-22 08:00] VITALS: BP 108/51; TEMP 98.8
[2022-06-22 12:00] VITALS: BP 117/56; TEMP 98.5
[2022-06-22 16:00] VITALS: BP 122/63; TEMP 98.1
[2022-06-22 20:00] VITALS: BP 125/64; TEMP 97.6
[2022-06-23] VITALS: BP 145/77; TEMP 98.1
[2022-06-23 08:00] VITALS: BP 130/64; TEMP 98.5
== END 2022-06-23 10:49 | disposition home or self-care (01) ==
LOC: ED 01:42 → MED/SURG 06:00
PROVIDERS: Internal Medicine; ADMIT Emergency Medicine; ATTEND Family Medicine
DX: N17.8 Other acute kidney failure (principal); E78.49 Other hyperlipidemia; K21.9 Gastro-esophageal reflux disease without esophagitis; F41.8 Other specified anxiety disorders; E86.0 Dehydration; R41.0 Disorientation, unspecified; A08.8 Other specified intestinal infections; M62.82 Rhabdomyolysis; E11.22 Type 2 diabetes mellitus with diabetic chronic kidney disease; E11.65 Type 2 diabetes mellitus with hyperglycemia; I13.0 Hypertensive heart and chronic kidney disease with heart failure and stage 1 through stage 4 chronic kidney disease, or unspecified chronic kidney disease; N18.32 Chronic kidney disease, stage 3b; I50.9 Heart failure, unspecified; Z79.4 Long term (current) use of insulin; I48.91 Unspecified atrial fibrillation; J44.9 Chronic obstructive pulmonary disease, unspecified; Z99.81 Dependence on supplemental oxygen; E11.42 Type 2 diabetes mellitus with diabetic polyneuropathy; D64.89 Other specified anemias; Z86.73 Personal history of transient ischemic attack (TIA), and cerebral infarction without residual deficits; I25.2 Old myocardial infarction; Z95.1 Presence of aortocoronary bypass graft
CPT/HCPCS: 36415; 80048; 80053; 81002; 82272; 82550; 82948; 83880; 84439; 84443; 84484; 85027; 85610; 85730; 87015; 87045; 87324; 87328; 87329; 87449; 87502; 87635; 87899; 93005; 96360; 96361; 96372; 96375; 99220; 99284; G0378; J1650; J1815; J1940; J3490; U0003

== ENCOUNTER 2022-12-04 13:47 | Outpatient (CLI) | payer OTHER ==
[2022-12-04 14:31] LABS: POTASSIUM 4.4 mmol/L (3.6-5.2)
[2022-12-04 14:32] LABS: PLATELET COUNT 144 K/uL (142-355)
== END 2022-12-04 19:26 | disposition home or self-care (01) ==
LOC: LABW 13:47
PROVIDERS: ATTEND Family Medicine
DX: I25.10 Atherosclerotic heart disease of native coronary artery without angina pectoris (principal); K21.9 Gastro-esophageal reflux disease without esophagitis; N18.30 Chronic kidney disease, stage 3 unspecified; G25.81 Restless legs syndrome; E11.65 Type 2 diabetes mellitus with hyperglycemia; I73.9 Peripheral vascular disease, unspecified; E78.2 Mixed hyperlipidemia; G89.4 Chronic pain syndrome; E55.9 Vitamin D deficiency, unspecified; I50.9 Heart failure, unspecified; I12.9 Hypertensive chronic kidney disease with stage 1 through stage 4 chronic kidney disease, or unspecified chronic kidney disease; I11.0 Hypertensive heart disease with heart failure
CPT/HCPCS: 36415; 80053; 80061; 80162; 81002; 82306; 83036; 83735; 84439; 84443; 84550; 85027

== ENCOUNTER 2023-03-08 12:03 | Outpatient (CLI) | payer OTHER | END 2023-03-08 19:28 | disposition home or self-care (01) | LOC: RAD 12:03 | PROVIDERS: ATTEND Student in an Organized Health Care Education/Training Program | DX: M54.16 Radiculopathy, lumbar region (principal); M47.816 Spondylosis without myelopathy or radiculopathy, lumbar region; M54.12 Radiculopathy, cervical region; M47.812 Spondylosis without myelopathy or radiculopathy, cervical region ==

== ENCOUNTER 2023-03-19 12:37 | Outpatient (CLI) | payer OTHER | END 2023-03-19 21:26 | disposition home or self-care (01) | LOC: MRI 12:37 | PROVIDERS: ATTEND Student in an Organized Health Care Education/Training Program | DX: M54.12 Radiculopathy, cervical region (principal); M47.812 Spondylosis without myelopathy or radiculopathy, cervical region; M54.16 Radiculopathy, lumbar region; M47.816 Spondylosis without myelopathy or radiculopathy, lumbar region ==

== ENCOUNTER 2023-04-11 08:43 | Outpatient (CLI) | payer OTHER | END 2023-04-11 19:09 | disposition home or self-care (01) | LOC: MRI 08:43 | PROVIDERS: ATTEND Student in an Organized Health Care Education/Training Program | DX: C72.0 Malignant neoplasm of spinal cord (principal) | CPT/HCPCS: 36415; 82565; 84520; A9576 ==

== ENCOUNTER 2023-04-23 14:00 | Outpatient (CLI) | payer OTHER | END 2023-04-23 18:57 | disposition home or self-care (01) | LOC: RESP 14:00 | PROVIDERS: ATTEND Nurse Practitioner | DX: I25.10 Atherosclerotic heart disease of native coronary artery without angina pectoris (principal); I35.0 Nonrheumatic aortic (valve) stenosis; I36.1 Nonrheumatic tricuspid (valve) insufficiency; I65.29 Occlusion and stenosis of unspecified carotid artery ==